=== PATIENT | female | born 1950 | race Caucasian/White ===

== ENCOUNTER 2019-12-02 07:22 | Emergency (ER) | payer OTHER ==
[2019-12-02 07:43] VITALS: BP 146/50; PULSE 59; TEMP 97.9; BMI 27.8
[2019-12-02] MEDS ORDERED: ASPIRIN 81 MG CHEWABLE TABLETS PO ONE (07:57)
[2019-12-02] MEDS ORDERED: ASPIRIN 81 MG CHEWABLE TABLETS ONE (08:04)
--- NOTE | 2019-12-02 08:07 | PDOC ---
History of Present Illness - General Chief Complaint: Chest Pain Stated Complaint: CHEST PAIN,LT SIDED PAIN Time Seen by Provider: 12/02/19 07:44 History Source: Patient Exam Limitations: No Limitations - History of Present Illness Initial Comments: Jazmyn Rayo is a 69 yo F who is a 40+ PPD smoker with a hx of borderline elevated cholesterol, hypothyroidism controlled with levothyroxine and b/l carpal tunnel syndrome who presents to the [facility] er as a walk in because she has been experiencing on and off left sided chest pain which radiates down her left arm. She describes the sensation as a pressure like feeling. She also says it was worse yesterday when she was walking up the stairs which is unusual for her. She states she has been increasingly gassy during the past 12 hours and burping much more than usual however she denies nausea or vomiting. She states that yesterday in the afternoon she felt an abnormal sensation in her left elbow and hand which she originally thought was her typical carpal tunnel syndrome pain. Then she woke up at 4 am this morning and the pain had gone up to her left elbow and left shoulder which was concerning to her because her carpal tunnel pain never affects her shoulder. She took a baby 81mg aspirin to be safe at home when she experienced this pain and then this morning when the pain had not subsided she came into the ER to be evaluated. - She reports frequent complicated migraines but none in the past few days - Travelled to [place] 1 month ago Denies associated diaphoresis, SOB, radiation to the right arm, back, or neck, headache, diaphoresis, leg swelling, other recent travel, personal or family history of thrombosis, recent surgeries, immobility, or hormonal supplements. PCP: Dr. Haider PSH: oophorectomy, b/l carpal tunnel release, 2 C-sections Allergies: Penicillins - rash Social Hx: Smokes 1 PPD and has done this for more than 40 years. Independent in her ADL. Past History - Past Medical History Allergies/Adverse Reactions: Allergies Allergy/AdvReac Type Severity Reaction Status Date / Time Penicillins Allergy Verified 12/02/19 07:37 Home Medications: Ambulatory Orders Levothyroxine Sodium [Levoxyl] 50 mcg PO DAILY 12/02/19 COPD: No Thyroid Disease: Yes - Psycho Social/Smoking Cessation Hx Smoking History: Current every day smoker Information on smoking cessation initiated: Yes Hx Alcohol Use: No Drug/Substance Use Hx: No Review of Systems - Review of Systems Able to Perform ROS?: Yes Comments:: CONSTITUTIONAL: Absent: fever, no chills, no fatigue EYES: Absent: visual changes ENT: Absent: ear pain, no sore throat CARDIOVASCULAR: Present: Chest pain Absent: no palpitations RESPIRATORY: Present: SOB Absent: cough GI: Absent: abdominal pain, no nausea, no vomiting, no constipation, no diarrhea GENITOURINARY: Absent: dysuria, no frequency, no hematuria MUSKULOSKELETAL: Absent: back pain, no arthralgia, no myalgia SKIN: Absent: rash NEURO: Absent: headache *Physical Exam - Vital Signs Last Vital Signs Temp Pulse Resp BP Pulse Ox 97.9 F 59 L 18 146/50 L 98 12/02/19 07:41 12/02/19 07:41 12/02/19 07:41 12/02/19 07:41 12/02/19 07:42 - Physical Exam GENERAL: Well-appearing, well-nourished. No apparent distress. HEENT: Normocephalic, atraumatic. PERRL, EOM intact. CARDIOVASCULAR: Gonzalez-systolic crescendo decrescendo murmur in the Left upper sternal region. Bradycardic rate and regular rhythm. PULMONARY: No evidence of respiratory distress. Lungs clear to auscultation bilaterally. No wheezing, rales or rhonchi. ABDOMEN: Soft, non-distended, non-tender. EXTREMITIES: Normal ROM in all four extremities. No gross deformities. SKIN: Warm, dry. No rash NEUROLOGICAL: No focal neurological deficits. Heart Score/ECG Review - History History: Moderately suspicious - Electrocardiogram EKG: Non specific repolarization disturbance - Age Age: >/= 65 - Risk Factors Risk Factors Heart Score: Yes Smoking History, Yes Hx Obesity Based on the list above the patient has:: 1-2 risk factors - Troponin Troponin: </= normal limit - Score Heart Score - Total: 5 ED Treatment Course - LABORATORY CBC & Chemistry Diagram: 12/02/19 08:15 12/02/19 08:15 - ADDITIONAL ORDERS Additional order review: Laboratory Results 12/02/19 12/02/19 12/02/19 11:30 08:15 08:15 PT with INR 11.60 INR 0.98 PTT (Actin FS) 49.0 H Sodium 137 Potassium 4.1 Chloride 105 Carbon Dioxide 27 Anion Gap 5 L BUN 15.5 Creatinine 0.8 Est GFR (CKD-EPI)AfAm 87.18 Est GFR (CKD-EPI)NonAf 75.22 Random Glucose 97 Calcium 9.0 Magnesium Total Bilirubin 0.4 AST 35 ALT 43 Alkaline Phosphatase 88 Creatine Kinase Troponin I < 0.02 Total Protein 9.0 H Albumin 4.5 12/02/19 08:15 PT with INR INR PTT (Actin FS) Sodium Potassium Chloride Carbon Dioxide Anion Gap BUN Creatinine Est GFR (CKD-EPI)AfAm Est GFR (CKD-EPI)NonAf Random Glucose Calcium Magnesium 2.4 Total Bilirubin AST ALT Alkaline Phosphatase Creatine Kinase 56 Troponin I < 0.02 Total Protein Albumin 12/02/19 08:15 RBC 4.73 MCV 87.0 MCHC 35.3 RDW 13.9 MPV 8.2 Neutrophils % 68.5 Lymphocytes % 18.9 Monocytes % 10.6 H Eosinophils % 1.4 Basophils % 0.6 - RADIOLOGY Radiology Studies Ordered: Category Date Time Status CHEST PA & LAT [RAD] Stat Radiology 12/02/19 07:58 Completed - Medications Given in the ED: ED Medications Discontinued Medications Generic Name Dose Route Start Last Admin Trade Name Freq PRN Reason Stop Dose Admin Aspirin 162 mg 12/02/19 07:57 12/02/19 08:29 Asa - PO 12/02/19 07:58 162 mg ONCE ONE Administration Medical Decision Making - Medical Decision Making Jazmyn Rayo is a 69 yo F who is a 40+ PPD smoker with a hx of borderline elevated cholesterol, hypothyroidism controlled with levothyroxine and b/l carpal tunnel syndrome who presents to the [facility] er as a walk in because she has been experiencing on and off left sided chest pain which radiates down her left arm. She describes the sensation as a pressure like feeling. She also says it was worse yesterday when she was walking up the stairs which is unusual for her. She states she has been increasingly gassy during the past 12 hours and burping much more than usual however she denies nausea or vomiting. She states that yesterday in the afternoon she felt an abnormal sensation in her left elbow and hand which she originally thought was her typical carpal tunnel syndrome pain. Then she woke up at 4 am this morning and the pain had gone up to her left elbow and left shoulder which was concerning to her because her carpal tunnel pain never affects her shoulder. She took a baby 81mg aspirin to be safe at home when she experienced this pain and then this morning when the pain had not subsided she came into the ER to be evaluated. - She reports frequent complicated migraines but none in the past few days - Travelled to [place] 1 month ago Denies associated diaphoresis, SOB, radiation to the right arm, back, or neck, headache, diaphoresis, leg swelling, other recent travel, personal or family history of thrombosis, recent surgeries, immobility, or hormonal supplements. Vital Signs Temp Pulse Resp BP Pulse Ox 97.9 F 59 L 18 146/50 L 97 12/02/19 07:41 12/02/19 07:41 12/02/19 07:41 12/02/19 07:41 12/02/19 07:41 DDx IBNLT: ACS - STEMI vs NSTEMI vs unstable angina, angina, arrythmia, LVH, aortic stenosis, electrolyte/metabolic disturbance, less likely PE or dissection , pneumothorax, PNA Plan: EKG, CXR, Labs, +/- Bedside POCUS, aspirin, re-assess EKG: Sinus bradycardia with rate of 59 and 1st degree AVB, LAFB, narrow complexes, LVH, TWI in lead 3, Q waves in leads 1 and aVL, no ST elevations or depressions, no hyper-acute T-waves. - Compared with an EKG in 2001: The LAFB is new. In 2001 the patient had nead LVH, now she has full LVH criteria. The 1st degree AVB and the TWI in lead 3 were present in 2001. HEART score: 5 before the troponin is back. Labs: Trop x1 negative. Overall unremarkable. CXR: No acute pathology Re-assessment: I have advised the patient that we reccommend telemetry observation admission for her to receive a formal cardiac evaluation including and echocardiogram, possibly a stress test and other exams. The patient states she is not interested in staying in the hospital because she does not want to be here over the weekend and she would like to complete her evaluation as an outpatient. Should would like to sign out against medical advice. 2nd Trop: I have called Dr. Haider her primary care doctor to bring him up to date regarding these findings - 1st call placed at 10:20 am, no answer, I left a voice mail requesting a call back at [phone] - 2ns call placed at 12:30 pm, still no answer, 2nd voicemail message left and asked to call back at [phone] - Called Dr. Haider's cell phone - Got in touch with him. He also agrees with us that she should be admitted to the hospital. Considering the fact that she is not willing to stay he says she can sign the AMA form and follow up in his office on Thursday and see him and Dr. Junior this upcoming thursday. The patient is presenting with Chest pain radiating down her Left arm. I am concerned that this may be cardiac chest pain in nature that warrants a telemetry admission and cardiac evaluation. The patient has verbalized understanding of my concerns. The patient is clinically sober and appears free from distracting injury. The patient appears to have intact insight, judgment, and reason. In my opinion, this patient has the capacity to make decisions The risks of leaving against medical advice without further evaluation treatment were discussed with the patient. These risks include worsening chest pain, heart attacks, stroke, , and permanent disability. The patient indicated understanding of these risks and appeared to have the capacity to make this decision. She would like to perform her work up as an outpatient. The patient is unwilling to stay for over the weekend and insists on leaving the hospital today. Jazmyn Rayo is unwilling to remain for additional monitoring. She is refusing further care and leaving against medical advice I'm unable to convince the patient to stay. I have asked the patient to return as soon as possible to complete her evaluation. I have spoken with the patient' s primary care doctor to arrange follow-up for her with a bit tripoler, Dr. Junior as an outpatient This coming Thursday. Disposition: AMA - Follow up with Dr. Haider and Dr. Junior this coming Thursday. Discharge - Discharge Information Problems reviewed: Yes Clinical Impression/Diagnosis: Chest pain Qualifiers: Chest pain type: unspecified Qualified Code(s): R07.9 - Chest pain, unspecified Condition: Stable Disposition: AGAINST MEDICAL ADVICE - Admission No - Follow up/Referral Referrals: Boby Haider MD [Primary Care Provider] - Jose Cruz Junior MD [Staff Physician] - - Patient Discharge Instructions Patient Printed Discharge Instructions: DI for Chest Pain, DI for Atypical Chest Pain Additional Instructions: You presented to the emergency room with Chest pain radiating down your Left arm. I am concerned that this may be cardiac chest pain in nature that warrants a telemetry admission and cardiac evaluation. The risks of leaving against medical advice without further evaluation treatment were discussed with you. These risks include worsening chest pain, heart attacks, stroke, , and permanent disability. You indicated understanding of these risks and appeared to have the capacity to make your decision to leave for the weekend and follow up as an outpatient this coming Thursday at Dr. Haider and Dr. Junior's office. You are unwilling to stay for over the weekend and insists on leaving the hospital today. Jazmyn Rayo is unwilling to remain for additional monitoring and leaving against medical advice I have spoken with the patient's primary care doctor to arrange follow-up for her with a bit tripoler, Dr. Junior as an outpatient This coming Thursday. Please come back to the emergency room immediately with any new or worsening concerns especially if you have chest pain, shortness of breath, difficulty breathing, a headache, nausea, vomiting, or any other new or worsening concerns. Make sure you goto Dr. Haider and Dr. Junior's office this coming Thursday for continued medical care. Thank you for coming to the [facility] ER. We hope you feel better soon! Print Language: BENGALI - Post Discharge Activity
[2019-12-02 08:36] LABS: BASO % 0.6 % (0-2.0); EOS % 1.4 % (0-4.5); HEMATOCRIT 41.1 % (32.4-45.2); HEMOGLOBIN 14.5 GM/dL (10.7-15.3); LYMPH % 18.9 % (8-40); MCH 30.7 pg (25.7-33.7); MCHC 35.3 g/dl (32.0-36.0); MEAN PLT VOLUME 8.2 fl (7.5-11.1); MONO % 10.6 % (3.8-10.2); NEUT % 68.5 % (42.8-82.8); PLATELET COUNT 294 K/MM3 (134-434); RBC 4.73 M/mm3 (3.60-5.2); RDW 13.9 % (11.6-15.6); WHITE BLOOD COUNT 4.7 K/mm3 (4.0-10.0)
[2019-12-02 08:56] LABS: INR 0.98 (0.83-1.09); PROTHROMBIN TIME (PATIENT) 11.6 SEC (9.7-13.0)
--- NOTE | 2019-12-02 08:58 | PDOC ---
Attending Attestation - Resident Resident Name: Jarred Russell - ED Attending Attestation I have performed the following: I have examined & evaluated the patient, The case was reviewed & discussed with the resident, I agree w/resident's findings & plan, Exceptions are as noted - HPI HPI: 12/02/19 12:52 69 years old with past medical history significant for active tobacco 40+ year pack a day smoker, borderline elevated cholesterol hypothyroidism presents to the ED with on and off left-sided chest pain rating down her left arm pressure- like and today with some shortness of breath No fever chills runny nose cough sore throat nausea vomiting diarrhea dizziness lightheadedness diaphoresis - Physicial Exam PE: 12/02/19 12:52 Vitals: Triage Vital signs reviewed General Appearance: No acute distress, well nourished well developed, Head: Atraumatic, Cardiac: Regular rate and rhythym, no murmurs, no rubs, no gallops, Lungs: Clear to auscultation bilateral, good air movement bilaterally, Abdomen: Soft, non distended, normal bowel sounds, non tender to palpation Extremities: Full range of motion to all extremities, no cyanosis, clubbing, or edema Skin: Warm and dry, no rashes or lesions, no rash, no petechia Psych: Normal mood, normal affect - Medical Decision Making 12/02/19 12:57 Well-appearing moderately suspicious chest pain story recommend admission and further management with cardiology consultation to patient patient is adamant she cannot stay in the hospital secondary to issues at home agreed to stay for at least a second troponin prior to signing out AGAINST MEDICAL ADVICE We have contacted the patient's primary care doctor we have arranged for cardiology follow-up on Thursday despite multiple attempts and greater than 20 minutes at the bedside I was unable to convince the patient to stay in the hospital for further management Troponin negative x2 her EKG demonstrates normal sinus rhythm with first-degree AV block no ST elevations isolated nonpathologic T wave inversion in lead III Interpreted by me Findings, the need for follow-up and strict return instructions discussed with patient. Heart Score/ECG Review - History History: Moderately suspicious - Electrocardiogram EKG: Normal - Age Age: >/= 65 - Risk Factors Risk Factors Heart Score: Yes Hx Hypercholesterolemia, Yes Smoking History Based on the list above the patient has:: 1-2 risk factors - Troponin Troponin: </= normal limit - Score Heart Score - Total: 4
[2019-12-02 09:02] LABS: ALBUMIN 4.5 g/dl (3.4-5.0); BILIRUBIN,TOTAL 0.4 mg/dL (0.2-1); BLOOD UREA NITROGEN 15.5 mg/dL (7-18); CREATININE 0.8 mg/dL (0.55-1.3); MAGNESIUM 2.4 mg/dL (1.8-2.4); POTASSIUM 4.1 mmol/L (3.5-5.1)
--- NOTE | 2019-12-03 13:38 | EKG ---
Test Reason : Blood Pressure : / mmHG Vent. Rate : 059 BPM Atrial Rate : 059 BPM P-R Int : 282 ms QRS Dur : 114 ms QT Int : 464 ms P-R-T Axes : 006 -46 005 degrees QTc Int : 459 ms SINUS BRADYCARDIA WITH 1ST DEGREE A-V BLOCK LEFT ANTERIOR FASCICULAR BLOCK VOLTAGE CRITERIA FOR LEFT VENTRICULAR HYPERTROPHY ABNORMAL ECG WHEN COMPARED WITH ECG OF 17-APR-2001 09:27, LEFT ANTERIOR FASCICULAR BLOCK IS NOW PRESENT Confirmed by MIKE KENDALL MD ([id number]) on 12/03/2019 1:38:02 PM Referred By: Confirmed By:MIKE KENDALL MD
== END 2019-12-02 12:30 | disposition left against medical advice (07) ==
LOC: JER 07:22
DX: R07.9 Chest pain, unspecified (principal); Z88.0 Allergy status to penicillin; F17.210 Nicotine dependence, cigarettes, uncomplicated; E03.9 Hypothyroidism, unspecified; G56.03 Carpal tunnel syndrome, bilateral upper limbs
CPT/HCPCS: 36415; 71046-TC-FY; 80053; 82550; 83735; 84484; 85025; 85610; 85730; 93005; 93010; 99285-25

== ENCOUNTER 2021-01-03 10:40 | Emergency (ER) | payer OTHER ==
[2021-01-03 11:01] VITALS: BP 147/63; PULSE 64; TEMP 97.8; BMI 26.2
[2021-01-03] MEDS ORDERED: ACETAMINOPHEN 325 MG TABLET (FP) PO ONE (11:56)
[2021-01-03] MEDS ORDERED: ACETAMINOPHEN 325 MG TABLET (FP) ONE (12:16)
[2021-01-03 12:38] LABS: BASO % 0.3 % (0-2.0); EOS % 0.4 % (0-4.5); HEMATOCRIT 39.2 % (32.4-45.2); HEMOGLOBIN 13.9 GM/dl (10.7-15.3); LYMPH % 11.2 % (8-40); MCH 31.1 pg (25.7-33.7); MCHC 35.3 g/dl (32.0-36.0); MEAN CELL VOLUME 88.1 fl (80-96); MEAN PLT VOLUME 8.2 fl (7.5-11.1); MONO % 6.8 % (3.8-10.2); NEUT % 81.3 % (42.8-82.8); PLATELET COUNT 302 K/MM3 (134-434); RBC 4.45 M/mm3 (3.60-5.2); RDW 12.1 % (11.6-15.6); WHITE BLOOD COUNT 6.4 K/mm3 (4.0-10.8)
[2021-01-03 12:59] LABS: ALBUMIN 4.4 g/dl (3.4-5.0); TOT PROT 8.4 g/dl (6.4-8.2)
[2021-01-03 13:13] LABS: BILIRUBIN,TOTAL 0.8 mg/dl (0.2-1); CALCIUM 9.4 mg/dl (8.5-10); CREATININE 0.8 mg/dl (0.55-1.3); POTASSIUM 4.3 mmol/L (3.5-5.1)
== END 2021-01-03 15:23 | disposition home or self-care (01) ==
LOC: FER 10:40
DX: R07.81 Pleurodynia (principal)
CPT/HCPCS: 36415; 70450-TC; 71260-TC; 72125-TC; 74177-TC; 80053; 85025; 99284-25; Q9967

== ENCOUNTER 2022-05-28 13:56 | Inpatient (IN) | payer OTHER ==
[2022-05-28] MEDS ORDERED: ONDANSETRON 4 MG/2 ML VIAL IVPUSH ONE (15:00)
[2022-05-28] MEDS ORDERED: ACETAMINOPHEN 1000 MG/100 ML BAG IVPB ONE (15:00)
[2022-05-28] MEDS ORDERED: ONDANSETRON 4 MG/2 ML VIAL ONE (15:38)
[2022-05-28] MEDS ORDERED: ACETAMINOPHEN INJECTION 100 ML IVPB ONE (15:38)
[2022-05-28 17:12] LABS: BASO % 1.1 % (0-2.0); EOS % 2.8 % (0-4.5); HEMATOCRIT 41.7 % (32.4-45.2); HEMOGLOBIN 14.4 GM/dL (10.7-15.3); LYMPH % 25.5 % (8-40); MCH 30.4 pg (25.7-33.7); MCHC 34.5 g/dl (32.0-36.0); MEAN CELL VOLUME 88.1 fl (80-96); MEAN PLT VOLUME 8.6 fl (7.5-11.1); MONO % 12.1 % (3.8-10.2); NEUT % 58.5 % (42.8-82.8); PLATELET COUNT 332 10^3/uL (134-434); RBC 4.74 M/mm3 (3.60-5.2); RDW 13.5 % (11.6-15.6); WHITE BLOOD COUNT 4.9 K/mm3 (4.0-10.0)
[2022-05-28 17:30] LABS: ALBUMIN 4.2 g/dl (3.4-5.0); BLOOD UREA NITROGEN 14.4 mg/dL (7-18); CALCIUM 9.7 mg/dL (8.5-10.1)
[2022-05-28 17:33] LABS: CREATININE 0.7 mg/dL (0.55-1.3)
[2022-05-28 17:35] LABS: INR 1.03 (0.83-1.09); PROTHROMBIN TIME (PATIENT) 11.8 SEC (9.7-13.0)
[2022-05-28 17:35] LABS: BILIRUBIN,TOTAL 0.7 mg/dL (0.2-1); TOT PROT 8.7 g/dl (6.4-8.2)
[2022-05-28 17:37] LABS: ACTIVATED PTT 48.4 SECONDS (25.2-36.5)
[2022-05-28] MEDS ORDERED: NICOTINE 14 MG/24 HOURS TOPICAL PATCH TD ONE (19:43)
[2022-05-28] MEDS: NICOTINE 14 MG/24 HOURS TOPICAL PATCH TD SCH (19:54)
[2022-05-29] MEDS ORDERED: NICOTINE POLACRILEX 2 MG GUM BUC PRN (01:52)
[2022-05-29 04:53] VITALS: BMI 28.5
[2022-05-29] MEDS ORDERED: morphine SULFATE 4 MG/ML VIAL IVPUSH ONE (06:46)
[2022-05-29] MEDS: LEVOTHYROXINE NA 50 MCG TABLET (FP) PO SCH (08:24)
[2022-05-29] MEDS: NICOTINE 14 MG/24 HOURS TOPICAL PATCH TD SCH (10:21)
[2022-05-29 10:23] LABS: BASO % 0.8 % (0-2.0); EOS % 4.3 % (0-4.5); HEMATOCRIT 39.4 % (32.4-45.2); LYMPH % 17.6 % (8-40); MCH 31.1 pg (25.7-33.7); MCHC 35.5 g/dl (32.0-36.0); MEAN CELL VOLUME 87.6 fl (80-96); MEAN PLT VOLUME 8.3 fl (7.5-11.1); MONO % 12.5 % (3.8-10.2); NEUT % 64.8 % (42.8-82.8); PLATELET COUNT 324 10^3/uL (134-434); RDW 13.3 % (11.6-15.6); WHITE BLOOD COUNT 4.7 K/mm3 (4.0-10.0)
[2022-05-29 10:46] LABS: CALCIUM 9.1 mg/dL (8.5-10.1); MAGNESIUM 2.3 mg/dL (1.8-2.4)
[2022-05-29 10:47] LABS: ALBUMIN 3.8 g/dl (3.4-5.0); BLOOD UREA NITROGEN 14.4 mg/dL (7-18)
[2022-05-29 10:49] LABS: CREATININE 0.7 mg/dL (0.55-1.3)
[2022-05-29 10:50] LABS: PHOSPHOROUS 4.1 mg/dL (2.5-4.9)
[2022-05-29 10:52] LABS: BILIRUBIN,TOTAL 0.9 mg/dL (0.2-1)
[2022-05-29] MEDS ORDERED: NICOTINE 14 MG/24 HOURS TOPICAL PATCH TD ONE (19:50)
[2022-05-29] MEDS ORDERED: ROSUVASTATIN CA 5 MG TABLET PO SCH (22:00)
[2022-05-30] MEDS: LEVOTHYROXINE NA 50 MCG TABLET (FP) PO SCH (05:29)
[2022-05-30 08:57] LABS: BASO % 1.2 % (0-2.0); EOS % 3.5 % (0-4.5); HEMATOCRIT 41.2 % (32.4-45.2); HEMOGLOBIN 14.1 GM/dL (10.7-15.3); LYMPH % 16.7 % (8-40); MCHC 34.2 g/dl (32.0-36.0); MEAN CELL VOLUME 87.8 fl (80-96); MEAN PLT VOLUME 8.2 fl (7.5-11.1); MONO % 12.9 % (3.8-10.2); NEUT % 65.7 % (42.8-82.8); PLATELET COUNT 324 10^3/uL (134-434); RDW 13.2 % (11.6-15.6); WHITE BLOOD COUNT 4.3 K/mm3 (4.0-10.0)
[2022-05-30 09:31] LABS: BLOOD UREA NITROGEN 10.6 mg/dL (7-18); CALCIUM 8.9 mg/dL (8.5-10.1)
[2022-05-30 09:32] LABS: MAGNESIUM 2.5 mg/dL (1.8-2.4)
[2022-05-30 09:34] LABS: BILIRUBIN,DIRECT 0.3 mg/dL (0.0-0.2); CREATININE 0.8 mg/dL (0.55-1.3); PHOSPHOROUS 3.2 mg/dL (2.5-4.9)
[2022-05-30 09:36] LABS: BILIRUBIN,TOTAL 0.6 mg/dL (0.2-1); TOT PROT 8.1 g/dl (6.4-8.2)
[2022-05-30] MEDS: NICOTINE 14 MG/24 HOURS TOPICAL PATCH TD SCH (09:48)
[2022-05-30] MEDS ORDERED: BUPIVACAINE HCL/PF 0.5% (5MG/ML) 10 ML VIAL ONE (11:39)
[2022-05-30] MEDS ORDERED: MIDAZOLAM HCL 2 MG/2 ML SINGLE DOSE VIAL ONE (13:24)
[2022-05-30] MEDS ORDERED: PROPOFOL 20 ML ONE (13:24)
[2022-05-30] MEDS ORDERED: KETOROLAC TROMETHAMINE 30 MG/1 ML VIAL ONE (13:52)
[2022-05-30] MEDS ORDERED: ONDANSETRON 4 MG/2 ML VIAL ONE (13:52)
[2022-05-30] MEDS ORDERED: DEXAMETHASONE SOD PHOSPHATE 4 MG/1 ML VIAL ONE (13:52)
[2022-05-30] MEDS ORDERED: BUPIVACAINE HCL/PF 0.5% (5MG/ML) 10 ML VIAL IJ ONE ×3 (13:55)
[2022-05-30] MEDS ORDERED: NEOSTIGMINE METHYLSULFATE 0.5 MG/ML - 10 ML MDV ONE (14:39)
[2022-05-30] MEDS ORDERED: oxyCODONE HCL 5 MG TABLET PO PRN (15:49)
[2022-05-30] MEDS ORDERED: NICOTINE POLACRILEX 2 MG GUM BUC PRN (15:49)
[2022-05-30] MEDS ORDERED: KETOROLAC TROMETHAMINE 15 MG/ML VIAL IVPUSH PRN ×2 (17:29→22:00)
[2022-05-30] MEDS: ACETAMINOPHEN 500 MG TABLET (FP) PO SCH (21:32)
[2022-05-30] MEDS ORDERED: ROSUVASTATIN CA 5 MG TABLET PO SCH (22:00)
[2022-05-31] MEDS: IBUPROFEN 400 MG TABLET (FP) PO PRN ×2 (01:13→15:27)
[2022-05-31] MEDS: ACETAMINOPHEN 500 MG TABLET (FP) PO SCH ×2 (03:36→09:53)
[2022-05-31 03:44] VITALS: RESP 18
[2022-05-31] MEDS ORDERED: IBUPROFEN 400 MG TABLET (FP) PO PRN (06:00)
[2022-05-31] MEDS ORDERED: LEVOTHYROXINE NA 50 MCG TABLET (FP) PO SCH (06:00)
[2022-05-31 09:30] LABS: BASO % 0.5 % (0-2.0); HEMATOCRIT 36.7 % (32.4-45.2); HEMOGLOBIN 12.4 GM/dL (10.7-15.3); LYMPH % 9.3 % (8-40); MCH 29.7 pg (25.7-33.7); MCHC 33.8 g/dl (32.0-36.0); MEAN PLT VOLUME 8.4 fl (7.5-11.1); MONO % 8.6 % (3.8-10.2); NEUT % 81.6 % (42.8-82.8); PLATELET COUNT 312 10^3/uL (134-434); RBC 4.18 M/mm3 (3.60-5.2); RDW 13.5 % (11.6-15.6); WHITE BLOOD COUNT 7.3 K/mm3 (4.0-10.0)
[2022-05-31] MEDS ORDERED: NICOTINE 14 MG/24 HOURS TOPICAL PATCH TD SCH (10:00)
[2022-05-31 10:06] LABS: ALBUMIN 3.4 g/dl (3.4-5.0); BLOOD UREA NITROGEN 12.9 mg/dL (7-18); CALCIUM 8.5 mg/dL (8.5-10.1); MAGNESIUM 2.2 mg/dL (1.8-2.4)
[2022-05-31 10:09] LABS: CREATININE 0.8 mg/dL (0.55-1.3); PHOSPHOROUS 3.9 mg/dL (2.5-4.9)
[2022-05-31 10:10] LABS: BILIRUBIN,TOTAL 0.6 mg/dL (0.2-1)
[2022-05-31 15:52] VITALS: BP 117/50; PULSE 59; TEMP 97.8
== END 2022-05-31 17:25 | disposition home or self-care (01) | DRG 419 ==
LOC: JER 13:56 → JERBED 18:22 → J8W 05-29 01:23
PROVIDERS: ADMIT Hospitalist; ATTEND Internal Medicine
PROC: 0FT44ZZ Resection of Gallbladder, Percutaneous Endoscopic Approach (ICD-10-PCS; principal; 2022-05-30 13:52)
DX: K80.00 Calculus of gallbladder with acute cholecystitis without obstruction (principal); E78.00 Pure hypercholesterolemia, unspecified; E03.9 Hypothyroidism, unspecified; F17.210 Nicotine dependence, cigarettes, uncomplicated; G43.909 Migraine, unspecified, not intractable, without status migrainosus; M54.50 Low back pain, unspecified
CPT/HCPCS: 0241U-QW; 36415; 74181-TC; 76705-TC; 80048; 80053; 80076; 82977; 83690; 83735; 84100; 85025; 85610; 85730; 86850; 86900; 86901; 88304-TC; 93005; 93010; 94010; 94760; 99285-25

== ENCOUNTER 2024-08-03 09:13 | Day surgery (SDC) | payer OTHER ==
[2024-08-01 12:00] VITALS: BMI 29.7
[2024-08-03] MEDS: PHENYLEPHRINE 2.5% OPTHALMIC DROP 2ML BOTTLE ONE (09:35)
[2024-08-03] MEDS: CYCLOPENTOLATE 2% OPHTH SOLN 2 ML BOTTLE ONE (09:35)
[2024-08-03] MEDS: TROPICAMIDE 1% OPHTH SOLN 15 ML BOTTLE ONE (09:35)
[2024-08-03] MEDS: CIPROFLOXACIN 0.3% EYE DROPS 5 ML BOTTLE ONE (09:35)
[2024-08-03 09:36] VITALS: RESP 18; TEMP 97.7
[2024-08-03] MEDS ORDERED: TETRACAINE 0.5% OPHTH SOLN 2 ML BOTTLE ONE (10:05)
[2024-08-03] MEDS ORDERED: BSS (NA/CA/MG/K) BALANCED SALT SOLUTION OPHTH SOLN 15 ML BOTTLE ONE (10:05)
[2024-08-03] MEDS ORDERED: LIDOCAINE 1% P/F 10 MG/ML VIAL ONE (10:05)
[2024-08-03] MEDS ORDERED: CARBACHOL 0.01% INTRA-OCULAR 1.5 ML VIAL ONE (10:06)
[2024-08-03] MEDS ORDERED: NEO/POLYMYX B SULF/DEXAMETH OPHTHALMIC 5ML BOTTLE ONE (10:06)
[2024-08-03] MEDS ORDERED: MIDAZOLAM HCL 2 MG/2 ML SINGLE DOSE VIAL ONE ×2 (10:08→11:16)
[2024-08-03 12:24] VITALS: BP 121/71; PULSE 65
== END 2024-08-03 12:15 | disposition home or self-care (01) ==
LOC: FASU 09:13
PROVIDERS: ATTEND Ophthalmology
PROC: 08RK3JZ Replacement of Left Lens with Synthetic Substitute, Percutaneous Approach (ICD-10-PCS; principal; 2024-08-03 11:16)
DX: H26.8 Other specified cataract (principal)
CPT/HCPCS: 66984; V2632

== ENCOUNTER 2024-08-31 09:10 | Day surgery (SDC) | payer OTHER ==
[2024-08-23 13:47] VITALS: BMI 29.7
[2024-08-31] MEDS: CIPROFLOXACIN 0.3% EYE DROPS 5 ML BOTTLE ONE (09:45)
[2024-08-31] MEDS: TROPICAMIDE 1% 3 ML EYE DROPS ONE (09:45)
[2024-08-31] MEDS: CYCLOPENTOLATE 2% OPHTH SOLN 2 ML BOTTLE ONE (09:45)
[2024-08-31] MEDS: PHENYLEPHRINE 2.5% OPTHALMIC DROP 2ML BOTTLE ONE (09:45)
[2024-08-31] MEDS ORDERED: NEO/POLYMYX B SULF/DEXAMETH OPHTHALMIC 5ML BOTTLE ONE (09:53)
[2024-08-31] MEDS ORDERED: TETRACAINE 0.5% OPHTH SOLN 2 ML BOTTLE ONE (09:53)
[2024-08-31] MEDS ORDERED: CARBACHOL 0.01% INTRA-OCULAR 1.5 ML VIAL ONE (09:53)
[2024-08-31] MEDS ORDERED: BSS (NA/CA/MG/K) BALANCED SALT SOLUTION OPHTH SOLN 15 ML BOTTLE ONE (09:53)
[2024-08-31] MEDS ORDERED: EPINEPHrine/PF 1 MG/1 ML (1:1,000) AMPULE ONE (09:53)
[2024-08-31] MEDS ORDERED: LIDOCAINE 1% P/F 10 MG/ML VIAL ONE (09:53)
[2024-08-31] MEDS ORDERED: MIDAZOLAM HCL 2 MG/2 ML SINGLE DOSE VIAL ONE ×2 (10:53→11:01)
[2024-08-31 11:35] VITALS: TEMP 97.1
[2024-08-31 11:59] VITALS: BP 134/71; PULSE 65; RESP 18
== END 2024-08-31 12:20 | disposition home or self-care (01) ==
LOC: FASU 09:10
PROVIDERS: ATTEND Ophthalmology
PROC: 08RJ3JZ Replacement of Right Lens with Synthetic Substitute, Percutaneous Approach (ICD-10-PCS; principal; 2024-08-31 11:01)
DX: H26.8 Other specified cataract (principal)
CPT/HCPCS: 66984; V2632